=== PATIENT | male | born 1985 | race Caucasian/White ===

== ENCOUNTER 2022-07-14 23:36 | Emergency (ER) | payer OTHER ==
[2022-07-15] MEDS ORDERED: IBUPROFEN600 MG PO (01:11)
[2022-07-15] MEDS ORDERED: PENVEE K 500 M500 MG PO (01:11)
== END 2022-07-15 01:20 | disposition home or self-care (01) ==
LOC: ER1 23:36
DX: R09.81 Nasal congestion (principal); Z20.822 Contact with and (suspected) exposure to COVID-19; K08.89 Other specified disorders of teeth and supporting structures; R40.2410 Glasgow coma scale score 13-15, unspecified time; F17.210 Nicotine dependence, cigarettes, uncomplicated
CPT/HCPCS: 0240U; 99283